=== PATIENT | female | born 1955 | race Caucasian/White ===

== ENCOUNTER 2019-06-23 10:54 | Emergency (ER) | payer OTHER ==
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
[2019-06-23 12:50] VITALS: BP 131/74; PULSE 82
== END 2019-06-23 13:05 | disposition home or self-care (01) ==
LOC: VM.ED 10:54
DX: S20.211A Contusion of right front wall of thorax, initial encounter (principal); Z91.048 Other nonmedicinal substance allergy status; Z79.899 Other long term (current) drug therapy; V49.9XXA Car occupant (driver) (passenger) injured in unspecified traffic accident, initial encounter
CPT/HCPCS: 71046; 99284-25

== ENCOUNTER 2022-02-27 17:26 | Emergency (ER) | payer MEDICARE, OTHER ==
[2022-02-28 02:53] VITALS: BP 132/72; PULSE 62
== END 2022-02-27 19:22 | disposition home or self-care (01) ==
LOC: VM.ED 17:26
DX: S90.31XA Contusion of right foot, initial encounter (principal); Z91.048 Other nonmedicinal substance allergy status; W22.09XA Striking against other stationary object, initial encounter; Y99.0 Civilian activity done for income or pay
CPT/HCPCS: 73620-RT; 99283

== ENCOUNTER 2024-06-19 17:21 | Emergency (ER) | payer OTHER, MEDICARE ==
[2024-06-19] MEDS: Ibuprofen 200 MG Tab PO ONE (19:31)
[2024-06-19 21:38] VITALS: BP 158/77; PULSE 62
== END 2024-06-19 20:25 | disposition home or self-care (01) ==
LOC: VM.ED 17:21
DX: M25.561 Pain in right knee (principal); Z90.710 Acquired absence of both cervix and uterus; Z91.048 Other nonmedicinal substance allergy status; W00.0XXA Fall on same level due to ice and snow, initial encounter
CPT/HCPCS: 73562-RT; 99283; A9270-GY

== ENCOUNTER 2025-02-12 15:45 | Emergency (ER) | payer MEDICARE, OTHER ==
[2025-02-12 16:04] VITALS: BP 146/75; PULSE 68
[2025-02-12] MEDS: Take Home: Ketorolac 10 MG Tab, 4 Tab Pack PO ONE (16:19)
[2025-02-12] MEDS: Take Home: Cephalexin 500 MG Cap, 6 Cap Pack PO ONE (16:19)
== END 2025-02-12 16:30 | disposition home or self-care (01) ==
LOC: VM.ED 15:45
DX: L03.116 Cellulitis of left lower limb (principal); Z88.8 Allergy status to other drugs, medicaments and biological substances
CPT/HCPCS: 99283; A9270-GY